=== PATIENT | male | born 1960 | race Caucasian/White ===

== ENCOUNTER 2023-08-30 07:18 | Emergency (ER) | payer MEDICARE, BC ==
[2023-08-30] MEDS: Lidocaine 2% with EPINEPHrine 1:200,000 20 ML SDV INJECT ONE (08:43)
== END 2023-08-30 09:05 | disposition home or self-care (01) ==
LOC: DL.ED 07:18
DX: K64.5 Perianal venous thrombosis (principal); Z86.16 Personal history of COVID-19
CPT/HCPCS: 46320; 99283; 99283-25; J3490